=== PATIENT | male | born 1965 | race American Indian/Alaskan Native ===

== ENCOUNTER 2017-07-21 18:12 | Emergency (ER) | payer SELFPAY ==
[2017-07-21] MEDS ORDERED: ZOFRAN ONE (18:19)
[2017-07-21 18:29] LABS: Basophils # (Auto) 0.1 K/mm3 (0.0-0.1); Basophils % (Auto) 1.4 % (0.0-1.8); Eosinophils # (Auto) 0.1 K/mm3 (0.0-0.4); Eosinophils % (Auto) 1.6 % (0.0-4.3); Hematocrit 42.9 % (35.5-45.6); Hemoglobin 14.4 gm/dl (11.8-15.2); Lymphocytes # (Auto) 2.6 K/mm3 (1.2-5.4); Lymphocytes % (Auto) 32.7 % (13.4-35.0); Mean Corpuscular HGB Conc 34 % (32-34); Mean Corpuscular Hemoglobin 29 pg (28-32); Mean Corpuscular Volume 86 fl (84-94); Monocytes # (Auto) 0.7 K/mm3 (0.0-0.8); Monocytes % (Auto) 8.4 % (0.0-7.3); Platelet Count 192 K/mm3 (140-440); Red Blood Count 5.01 M/mm3 (3.65-5.03); Red Cell Distribution Width 16.3 % (13.2-15.2)
[2017-07-21 18:45] LABS: BUN/Creatinine Ratio 13; Blood Urea Nitrogen 13 mg/dL (9-20); Hemolysis Index 11
[2017-07-21] MEDS ORDERED: CATAPRES PO ONE (18:51)
--- NOTE | 2017-07-21 18:51 | Cat Scan Report ---
FINAL REPORT EXAM: CT HEAD/BRAIN WO CON HISTORY: neuro deficits < 6hrs or sx present upon awakening TECHNIQUE: A noncontrast CT of the head was performed. PRIORS: None. FINDINGS: There is a 3 cm area of hemorrhage which involves the right thalamus, the cerebral peduncle, and midbrain. There is mild surrounding edema. There is blood in the right lateral ventricle. At the level the hemorrhage there is about 5 mm midline shift. There is no skull fracture seen. The visualized paranasal sinuses are clear. IMPRESSION: 3 cm hemorrhage involving right thalamus, cerebral peduncle and midbrain. There is focal mass effect and focal 5 mm midline shift. There is also some intraventricular blood. JARED Hu was informed of findings on 07/21/2017 at 6:42 p.m. EST.
[2017-07-21 18:55] LABS: INR 0.94 (0.87-1.13); Partial Thromboplastin Time 31.7 Sec. (24.2-36.6)
[2017-07-21] MEDS ORDERED: APRESOLINE IV ONE (18:57)
[2017-07-21] MEDS ORDERED: CARDENE 50 MG in NACL 0.9% 250ML 230 ML IV SCH (19:00)
--- NOTE | 2017-07-21 19:12 | Emergency Department Report ---
ED Neuro Deficit HPI - General Chief Complaint: Neuro Symptoms/Deficit Stated Complaint: POSS STROKE Time Seen by Provider: 07/21/17 18:29 Source: patient, EMS Mode of arrival: Stretcher Limitations: No Limitations - History of Present Illness Initial Comments: 52-year-old -[place] history of hypertension says is noncompliant with meds for a month. He also does smoke. He was sitting at work approximately 1745 this evening developed a left-sided weakness to the left upper extremity and left lower extremity and then developed left-sided facial droop with speech problems. He presents with blood pressure 199 systolic for evaluation. Patient was immediately placed on cardiac surgeon stroke protocol was instituted patient went to CT immediately. Patient was GCS 14-15 on arrival with good gag reflex and protecting airway with normal sat. Following commands with no other complaints denied chest pain benign neck pain denies fever denies abdominal complaints no other complaints -: This evening Location: speech, left arm, left leg Place: work Quality: weak On Anticoagulants: No Associated Symptoms: denies other symptoms, weakness (no trauma no stiffness to neck) - Related Data Allergies/Adverse Reactions: Allergies Allergy/AdvReac Type Severity Reaction Status Date / Time No Known Allergies Allergy Unverified 07/21/17 18:15 ED Review of Systems ROS: Stated complaint: POSS STROKE Other details as noted in HPI Comment: All other systems reviewed and negative Constitutional: see HPI Respiratory: denies: shortness of breath, SOB with exertion, SOB at rest, stridor Cardiovascular: denies: chest pain, palpitations, dyspnea on exertion, orthopnea , edema, syncope, paroxysmal nocturnal dyspnea Endocrine: denies: flushing Gastrointestinal: denies: abdominal pain, nausea, vomiting, diarrhea, constipation, hematemesis, melena, hematochezia Neurological: headache, weakness, numbness, paresthesias ED Past Medical Hx - Past Medical History Hx Hypertension: Yes - Social History Smoking Status: Current Every Day Smoker Substance Use Type: Marijuana ED Neuro Physical Exam - General Limitations: No Limitations General appearance: alert, other (slurred speech unable to cooperate for I exam left-sided hal-paresis) Suspected Stroke: Yes - Head Head exam: Present: atraumatic, normocephalic - Eye Eye exam: Present: PERRL - ENT ENT exam: Present: normal exam, normal orophraynx, other (speaking without stridor or drooling. Gag reflex positive) - Neck Neck exam: Present: normal inspection. Absent: tenderness, meningismus, lymphadenopathy, thyromegaly - Respiratory Respiratory exam: Present: normal lung sounds bilaterally. Absent: respiratory distress, wheezes, rales, rhonchi, stridor, chest wall tenderness, accessory muscle use, decreased breath sounds, prolonged expiratory - Cardiovascular Cardiovascular Exam: Present: regular rate, normal rhythm - GI/Abdominal GI/Abdominal exam: Present: soft. Absent: tenderness, guarding, rebound, rigid , organomegaly, mass, bruit, pulsatile mass - Extremities Exam Extremities exam: Present: normal inspection. Absent: tenderness, normal capillary refill, pedal edema, joint swelling, calf tenderness - Neurological Exam Neurological exam: Present: alert, oriented X3, other (facial asymmetry slurred speech and left-sided weakness). Absent: CN II-XII intact, motor sensory deficit - NIHSS Assessment Interval: Baseline 1a. Level of Consciousness: alert 1b. LOC Questions: answers correctly 1c. LOC Commands: performs 1 task correctly 2. Best Gaze: partial gaze palsy 3. Visual: no visual loss 4. Facial Palsy: partial paralysis 5b. Motor Arm Right: no drift 5a. Motor Arm Left: some gravity effort 6a. Motor Leg Left: some gravity effort 6b. Motor Leg Right: no drift 7. Limb Ataxia: absent 8. Sensory: mild/moderate sensory loss 9. Best Language: mild/moderate aphasia 10. Dysarthria: mild/moderate dysarthria 11. Extinction/Inattention: no abnormality Total Score: 11 Stroke Severity: Moderate Stroke - Psychiatric Psychiatric exam: Absent: homicidal ideation, suicidal ideation - Skin Skin exam: Present: warm. Absent: cyanosis, erythema, urticaria, vesicles, petechiae ED Course Vital Signs 07/21/17 07/21/17 07/21/17 18:33 18:37 19:07 Temperature 98.7 F Pulse Rate 56 L 74 Respiratory 16 12 Rate Blood Pressure 199/127 205/150 O2 Sat by Pulse 99 99 Oximetry - Reevaluation(s) Reevaluation #1: 07/21/17 19:15 Patient was sent immediately to CT stroke protocol was instituted. CT result was read within a half hour. - Intubation Time Out Performed: Yes Sedative: Etomidate Paralytic: Succinylcholine Laryngoscope: Colten Size: 4 Assist Device Used: Bougie ET Tube Size: 7.5 Tube Secured Depth (cm): 24 Tube Secured Location: lips Tube Placement Confirmation: visualized tube passing t, equal breath sounds bilat, confirmation by capnometr Intubation Complications: none, difficult intubation, other (intubated after 2passes w/ bougie, no complications, good color change) - Lab Data Result diagrams: 07/21/17 18:23 07/21/17 18:23 Lab Results 07/21/17 07/21/17 07/21/17 Range/Units 18:23 18:23 18:23 WBC 8.1 (4.5-11.0) K/mm3 RBC 5.01 (3.65-5.03) M/mm3 Hgb 14.4 (11.8-15.2) gm/dl Hct 42.9 (35.5-45.6) % MCV 86 (84-94) fl MCH 29 (28-32) pg MCHC 34 (32-34) % RDW 16.3 H (13.2-15.2) % Plt Count 192 (140-440) K/mm3 Lymph % (Auto) 32.7 (13.4-35.0) % Avery % (Auto) 8.4 H (0.0-7.3) % Eos % (Auto) 1.6 (0.0-4.3) % Baso % (Auto) 1.4 (0.0-1.8) % Lymph # 2.6 (1.2-5.4) K/mm3 Avery # 0.7 (0.0-0.8) K/mm3 Eos # 0.1 (0.0-0.4) K/mm3 Baso # 0.1 (0.0-0.1) K/mm3 Seg Neutrophils % 55.9 (40.0-70.0) % Seg Neutrophils # 4.5 (1.8-7.7) K/mm3 PT 13.0 (12.2-14.9) Sec. INR 0.94 (0.87-1.13) APTT 31.7 (24.2-36.6) Sec. Thrombin Time (15.1-19.6) Sec. Sodium 140 (137-145) mmol/L Potassium 3.2 L (3.6-5.0) mmol/L Chloride 100.2 (98-107) mmol/L Carbon Dioxide 24 (22-30) mmol/L Anion Gap 19 mmol/L BUN 13 (9-20) mg/dL Creatinine 1.0 (0.8-1.5) mg/dL Estimated GFR > 60 ml/min BUN/Creatinine Ratio 13 % Glucose 147 H (75-100) mg/dL Calcium 9.0 (8.4-10.2) mg/dL Troponin T < 0.010 (0.00-0.029) ng/mL 07/21/17 Range/Units 18:23 WBC (4.5-11.0) K/mm3 RBC (3.65-5.03) M/mm3 Hgb (11.8-15.2) gm/dl Hct (35.5-45.6) % MCV (84-94) fl MCH (28-32) pg MCHC (32-34) % RDW (13.2-15.2) % Plt Count (140-440) K/mm3 Lymph % (Auto) (13.4-35.0) % Avery % (Auto) (0.0-7.3) % Eos % (Auto) (0.0-4.3) % Baso % (Auto) (0.0-1.8) % Lymph # (1.2-5.4) K/mm3 Avery # (0.0-0.8) K/mm3 Eos # (0.0-0.4) K/mm3 Baso # (0.0-0.1) K/mm3 Seg Neutrophils % (40.0-70.0) % Seg Neutrophils # (1.8-7.7) K/mm3 PT (12.2-14.9) Sec. INR (0.87-1.13) APTT (24.2-36.6) Sec. Thrombin Time 15.2 (15.1-19.6) Sec. Sodium (137-145) mmol/L Potassium (3.6-5.0) mmol/L Chloride (98-107) mmol/L Carbon Dioxide (22-30) mmol/L Anion Gap mmol/L BUN (9-20) mg/dL Creatinine (0.8-1.5) mg/dL Estimated GFR ml/min BUN/Creatinine Ratio % Glucose (75-100) mg/dL Calcium (8.4-10.2) mg/dL Troponin T (0.00-0.029) ng/mL - EKG Data EKG shows normal: sinus rhythm Interpretation: nonspecific ST-T wave xavier, LVH, other (no acute ischemic change ) - Radiology Data Radiology results: report reviewed Per the radiologist 3 cm right thalamic hemorrhage into the peduncle and midbrain ,5 mm focal mass effect with some intraventricular blood in the right lateral ventricle - Medical Decision Making Patient was brought to a critical care room he was placed on a cardiac surgeon with good saturations laboratory studies EKG was obtained. CT result was obtained about half hour after the initial reading. X-ray was performed on chest. CT read shows as recently dictated intracerebral hemorrhage. At this point time we did attempt to transfer the patient to [facility] I did discuss case with the on-call neurosurgeon at that facility they're unable to accept the patient given the fact of no beds. At this point time we did get in touch with the [facility] who goes to Dr. Tafoya of the neuro ICU who will accept the patient. He did recommend hydralazine 20 mg IV, Cardene drip to a systolic of 140-160. He also did recommend that the patient becomes obtunded that was treated airway prior to transfer. Patient does appear to be having some increased obtundation and likely will need RSI intubation prior to transfer he has been accepted at that facility they are arranging transport. Critical Care Time: Yes Critical care time in (mins) excluding proc time.: 45 Critical care attestation.: If time is entered above; I have spent that time in minutes in the direct care of this critically ill patient, excluding procedure time. ED Disposition Clinical Impression: Intracerebral hemorrhage, Hypertensive crisis Disposition: DC/TX-70 ANOTHER TYPE HLTHCARE Is pt being admited?: No Does the pt Need Aspirin: No Condition: Critical Referrals: PRIMARY CARE, [Primary Care Provider] - 3-5 Days Time of Disposition: 19:23
[2017-07-21] MEDS ORDERED: DIPRIVAN 10 MG/ML IV ONE ×2 (19:39→20:15)
[2017-07-21] MEDS ORDERED: AMIDATE IV ONE (19:45)
[2017-07-21] MEDS ORDERED: QUELICIN ONE (19:45)
[2017-07-21] MEDS ORDERED: DIPRIVAN 10 MG/ML 1,000 MG/100 ML BOTTLE IV ONE (20:04)
[2017-07-21] MEDS ORDERED: ARTIFICIAL TEARS OPHTH OINT OU PRN (20:32)
[2017-07-21] MEDS ORDERED: VASELINE LIP THERAPY TP PRN (20:32)
--- NOTE | 2017-07-21 20:51 | XRay Report ---
FINAL REPORT PROCEDURE: XR CHEST 1V AP TECHNIQUE: Chest radiograph anteroposterior view. CPT 60876 HISTORY: post intubation COMPARISON: No prior studies are available for comparison. FINDINGS: Heart: Normal. Mediastinum/Vessels: Normal. Lungs/Pleural space: Normal. Bony thorax: No acute osseous abnormality. Life support devices: Endotracheal tube is terminating about 4.4 centimeters above the zee. Stomach is distended with air.. IMPRESSION: No acute pulmonary infiltrates. Endotracheal tube is terminating about 4.4 centimeters above the zee. Distended stomach..
[2017-07-21] MEDS ORDERED: DIPRIVAN 10 MG/ML 1,000 MG/100 ML BOTTLE IV SCH (21:00)
[2017-07-21] MEDS ORDERED: NACL 0.9% 500 ML IV SCH (21:00)
[2017-07-21 22:08] VITALS: BP 121/70
== END 2017-07-21 22:30 | disposition other institution (70) ==
LOC: ED 18:12
DX: I61.9 Nontraumatic intracerebral hemorrhage, unspecified (principal); I16.9 Hypertensive crisis, unspecified; I10 Essential (primary) hypertension; F17.200 Nicotine dependence, unspecified, uncomplicated; F12.10 Cannabis abuse, uncomplicated
CPT/HCPCS: 31500; 36415; 70450; 71045; 80048; 82803; 84484; 85025; 85610; 85670; 85730; 87205; 93005; 93010; 96365; 96366; 96368; 96375; 99291; J0330; J0360; J2405; J2704; J7050; 94002